=== PATIENT | female | born 1945 | race Caucasian/White ===

== ENCOUNTER 2018-04-30 12:04 | Inpatient (IN) ==
[2018-04-30 13:56] LABS: Apearance,Urine Slightly Hazy (Clear); Bilirubin,Urine Negative (Negative); Blood, Urine Negative (Negative); Glucose,Urine (UA) Negative (Negative); Ketones,Urine 5 mg/dL (Negative); Mucus,Urine Few /LPF (Occasional); Nitrite,Urine Negative (Negative); Protein,Urine Negative; RBC,Urine 2 /HPF (0-4); Squamous Epithelial Cell,Urine Occasional /HPF (0-10); Urine Color Yellow (Yellow); Urine Specific Gravity 1.017 (1.001-1.035); Urine Urobilinogen < 2.0 EU/DL (0.2-1.0); WBC,Urine <1 /HPF (0-6)
[2018-04-30] MEDS ORDERED: SODIUM CHLORIDE 0.9% 1,000 ML IV STA (14:40)
[2018-04-30] MEDS ORDERED: ONDANSETRON 4 MG/2 ML VIAL IV STA (14:40)
[2018-04-30] MEDS ORDERED: MORPHINE 4 MG/1 ML VIAL IV STA ×2 (14:40→15:06)
[2018-04-30] MEDS ORDERED: ONDANSETRON 4 MG/2 ML VIAL ONE (15:24)
[2018-04-30] MEDS ORDERED: MORPHINE 4 MG/1 ML VIAL ONE (15:24)
[2018-04-30 15:35] LABS: Basophils % 0.4 % (0.0-0.8); Eosinophils # 0.2 10*3/uL (0.0-0.87); Eosinophils % 1.8 % (0.00-10.9); Hemoglobin 14.3 GM/DL (12.0-16.0); Immature Granulocytes % 0.5 %; Immature Granulocytes Absolute 0.05 #; Lymphocytes # 1.6 10*3/uL (1.4-4.0); Lymphocytes % 15.3 % (21.3-54.2); Mean Corpuscular HGB Conc 31.8 GM/DL (32-36); Mean Corpuscular Hemoglobin 27 PG (27-34); Mean Corpuscular Volume 86.2 FL (87-102); Mean Platelet Volume 11.5 FL (9.6-12.0); Monocytes # 0.3 10*3/uL (0.11-0.8); Monocytes % 2.9 % (1.7-12.7); Neutrophils # 8.4 10*3/uL (1.4-7.4); Neutrophils % 79.1 % (38.7-73.9); Platelet Count 285 T/CUMM (130-400); Red Blood Count 5.22 MC/CUMM (3.8-5.5); Red Cell Distribution Width 16.8 % (9.3-17.3); White Blood Count 10.7 T/CUMM (4-12)
[2018-04-30 16:04] LABS: Albumin 4.2 G/DL (3.4-5.0); Bilirubin,Total 0.5 MG/DL (0.2-1.0); Calcium 9.9 MG/DL (8.5-10.1); Osmolality,Calculated 272.1 MOS/KG (273-304); Potassium 3.9 MMOL/L (3.5-5.1); Total Protein 7.6 G/DL (6.4-8.3)
[2018-04-30] MEDS ORDERED: ACETAMINOPHEN 325 MG TABLET PO PRN (18:03)
[2018-04-30] MEDS ORDERED: HYDROmorphone 2 MG/1 ML VIAL IV PRN (18:03)
[2018-04-30] MEDS ORDERED: ALBUTEROL/IPRATROPIUM 3 ML NEB RESP TX PRN (18:03)
[2018-04-30] MEDS ORDERED: LEVOFLOXACIN INJ 100 ML IV ONE (19:28)
[2018-04-30] MEDS: LEVOFLOXACIN INJ 500 MG in PREMIX 1 EACH IV SCH (19:34)
[2018-04-30] MEDS: MORPHINE 4 MG/1 ML VIAL IV PRN (20:50)
[2018-04-30] MEDS: ONDANSETRON 4 MG/2 ML VIAL IV PRN (21:01)
[2018-04-30] MEDS: DEXTROSE 5% NACL 0.9% 1,000 ML IV SCH (23:30)
[2018-04-30] MEDS: metroNIDAZOLE INJ 500 MG in PREMIX 1 EACH IV SCH (23:35)
[2018-05-01] MEDS: DEXTROSE 5% NACL 0.9% 1,000 ML IV SCH ×3 (03:30→12:35)
[2018-05-01] MEDS: ONDANSETRON 4 MG/2 ML VIAL IV PRN (03:34)
[2018-05-01] MEDS: MORPHINE 4 MG/1 ML VIAL IV PRN ×2 (03:34→08:33)
[2018-05-01 05:17] LABS: Basophils % 0.2 % (0.0-0.8); Eosinophils # 0.1 10*3/uL (0.0-0.87); Eosinophils % 0.9 % (0.00-10.9); Hematocrit 41.5 VOL% (35.7-47.0); Hemoglobin 12.8 GM/DL (12.0-16.0); Immature Granulocytes % 0.4 %; Immature Granulocytes Absolute 0.04 #; Lymphocytes # 1.5 10*3/uL (1.4-4.0); Mean Corpuscular HGB Conc 30.8 GM/DL (32-36); Mean Corpuscular Hemoglobin 27 PG (27-34); Mean Corpuscular Volume 88.7 FL (87-102); Mean Platelet Volume 11.8 FL (9.6-12.0); Monocytes # 0.7 10*3/uL (0.11-0.8); Monocytes % 6.8 % (1.7-12.7); Neutrophils # 8.1 10*3/uL (1.4-7.4); Neutrophils % 77.7 % (38.7-73.9); Platelet Count 270 T/CUMM (130-400); Red Blood Count 4.68 MC/CUMM (3.8-5.5); Red Cell Distribution Width 17.2 % (9.3-17.3); White Blood Count 10.4 T/CUMM (4-12)
[2018-05-01] MEDS: metroNIDAZOLE INJ 500 MG in PREMIX 1 EACH IV SCH ×3 (05:25→20:23)
[2018-05-01 05:48] LABS: Calcium 9.1 MG/DL (8.5-10.1); Potassium 3.2 MMOL/L (3.5-5.1)
[2018-05-01] MEDS ORDERED: ENOXAPARIN 40 MG/0.4 ML SYRINGE SUBCUT SCH (09:00)
[2018-05-01] MEDS: POTASSIUM CHLORIDE RIDER 10 MEQ in PREMIX 1 EACH IV SCH ×2 (12:35→14:40)
[2018-05-01] MEDS ORDERED: HEPARIN/NACL 0.9% 2 UNITS/ML 500 ML IV ONE (13:09)
[2018-05-01] MEDS ORDERED: PHENYLEPHRINE DRIP 20 MG/250 ML PREMIX IV ONE (13:09)
[2018-05-01 13:54] LABS: Apearance,Urine Slightly Hazy (Clear); Bilirubin,Urine Negative (Negative); Blood, Urine Negative (Negative); Glucose,Urine (UA) Negative (Negative); Ketones,Urine Negative (Negative); Nitrite,Urine Negative (Negative); Protein,Urine Negative; RBC,Urine 10 /HPF (0-4); Squamous Epithelial Cell,Urine Few /HPF (0-10); Urine Color Yellow (Yellow); Urine Specific Gravity > 1.060 (1.001-1.035); Urine Urobilinogen < 2.0 EU/DL (0.2-1.0); WBC,Urine 1 /HPF (0-6)
[2018-05-01] MEDS ORDERED: PHENYLEPHRINE DRIP 40 MG/250 ML PREMIX IV PRN ×3 (14:34→18:52)
[2018-05-01] MEDS ORDERED: ONDANSETRON 4 MG/2 ML VIAL IV PRN (14:39)
[2018-05-01] MEDS ORDERED: LACTATED RINGERS 1,000 ML IV ONE ×2 (14:39→19:44)
[2018-05-01] MEDS ORDERED: PROMETHAZINE 25 MG/1 ML VIAL IM PRN (14:39)
[2018-05-01] MEDS ORDERED: fentaNYL 100 MCG/2 ML VIAL ONE (14:52)
[2018-05-01] MEDS ORDERED: SUCCINYLCHOLINE 200 MG/10 ML VIAL ONE (14:52)
[2018-05-01] MEDS ORDERED: DESFLURANE 1 UNIT/15 MINUTE INH ONE (14:52)
[2018-05-01] MEDS ORDERED: ROCURONIUM 100 MG/10 ML VIAL IV ONE (14:52)
[2018-05-01] MEDS ORDERED: PHENYLEPHRINE 1 MG/10 ML SYRINGE IV ONE (14:52)
[2018-05-01] MEDS ORDERED: LACTATED RINGERS 2,000 ML IV ONE ×2 (14:52→15:58)
[2018-05-01] MEDS ORDERED: ETOMIDATE 40 MG/20 ML VIAL IV ONE (14:52)
[2018-05-01] MEDS ORDERED: MIDAZOLAM 2 MG/2 ML VIAL ONE (14:53)
[2018-05-01 14:59] LABS: ABG Base Excess -4.9 MMOL/L (-2.5-2.5); ABG HCO3 21.5 MMOL/L (20-26); ABG Oxygen Saturation 97.7 % (95-100); ABG PCO2 44.9 MM HG (35-48); ABG PH 7.299 (7.35-7.45); ABG PO2 119.7 MM HG (80-95); ABG TCO2 22.9 MMOL/L (23-27)
[2018-05-01] MEDS ORDERED: KETOROLAC 15 MG/1 ML VIAL IV SCH (15:00)
[2018-05-01 15:05] LABS: Basophils % 0.3 % (0.0-0.8); Eosinophils % 0.5 % (0.00-10.9); Hemoglobin 12.5 GM/DL (12.0-16.0); Immature Granulocytes % 1.1 %; Immature Granulocytes Absolute 0.07 #; Lymphocytes # 0.9 10*3/uL (1.4-4.0); Lymphocytes % 14.9 % (21.3-54.2); Mean Corpuscular HGB Conc 30.5 GM/DL (32-36); Mean Corpuscular Hemoglobin 27 PG (27-34); Mean Corpuscular Volume 88.7 FL (87-102); Mean Platelet Volume 11.2 FL (9.6-12.0); Monocytes # 0.3 10*3/uL (0.11-0.8); Monocytes % 4.4 % (1.7-12.7); Neutrophils # 4.8 10*3/uL (1.4-7.4); Neutrophils % 78.8 % (38.7-73.9); Platelet Count 295 T/CUMM (130-400); Red Blood Count 4.62 MC/CUMM (3.8-5.5); Red Cell Distribution Width 17.2 % (9.3-17.3)
[2018-05-01 15:06] LABS: White Blood Count 6.1 T/CUMM (4-12)
[2018-05-01] MEDS: PROPOFOL 1,000 MG/100 ML BOTTLE IV SCH (15:06)
[2018-05-01 15:16] LABS: Calcium 7.7 MG/DL (8.5-10.1); Osmolality,Calculated 285.3 MOS/KG (273-304)
[2018-05-01] MEDS: PANTOPRAZOLE 40 MG VIAL IV SCH (15:16)
[2018-05-01] MEDS: LACTATED RINGERS 1,000 ML IV SCH (15:53)
[2018-05-01] MEDS ORDERED: POTASSIUM CHLORIDE RIDER 10 MEQ in PREMIX 1 EACH IV PRN (15:59)
[2018-05-01] MEDS ORDERED: NOREPINEPHRINE 4 MG/4 ML VIAL IV ONE (16:01)
[2018-05-01] MEDS: NOREPINEPHRINE 8 MG in SODIUM CHLORIDE 0.9% 242 ML IV PRN ×3 (16:09→20:12)
[2018-05-01 16:22] LABS: Band Neutrophils 5 % (0-10); Lymphocytes 16 % (20-55); Platelet Estimate Adequate; Platelet Satellitism 1+; Segmented Neutrophils 64 % (50-85); Total Cells Counted 100
[2018-05-01] MEDS: POTASSIUM CHLORIDE RIDER 20 MEQ in PREMIX 1 EACH IV PRN (16:42)
[2018-05-01] MEDS: LEVOFLOXACIN INJ 500 MG in PREMIX 1 EACH IV SCH (16:59)
[2018-05-01] MEDS: HYDROCORTISONE 100 MG VIAL IV SCH (17:33)
[2018-05-01 18:07] LABS: ABG Base Excess -3.7 MMOL/L (-2.5-2.5); ABG HCO3 21.4 MMOL/L (20-26); ABG Oxygen Saturation 98.5 % (95-100); ABG PCO2 38.7 MM HG (35-48); ABG PO2 165.4 MM HG (80-95); ABG TCO2 22.6 MMOL/L (23-27)
[2018-05-01] MEDS ORDERED: ALBUMIN 5% 12.5 GM in PREMIX 1 EACH IV ONE ×2 (18:24→18:35)
[2018-05-01] MEDS ORDERED: PHENYLEPHRINE DRIP 40 MG/250 ML PREMIX IV ONE (18:50)
[2018-05-01 18:53] LABS: ABG Base Excess -3.9 MMOL/L (-2.5-2.5); ABG HCO3 21.2 MMOL/L (20-26); ABG Oxygen Saturation 97.9 % (95-100); ABG PCO2 38.2 MM HG (35-48); ABG PH 7.353 (7.35-7.45); ABG TCO2 18.9 MMOL/L (23-27)
[2018-05-01] MEDS: SERTRALINE 100 MG TABLET PO SCH (20:22)
[2018-05-01 21:43] LABS: Immature Granulocytes Absolute 0.12 #; Lymphocytes # 0.6 10*3/uL (1.4-4.0)
[2018-05-01 21:58] LABS: Calcium 6.9 MG/DL (8.5-10.1); Osmolality,Calculated 283.5 MOS/KG (273-304); Potassium 3.5 MMOL/L (3.5-5.1)
[2018-05-01 22:02] LABS: Basophils % 0.2 % (0.0-0.8); Hematocrit 36.1 VOL% (35.7-47.0); Hemoglobin 11.3 GM/DL (12.0-16.0); Immature Granulocytes % 0.8 %; Lymphocytes % 4.1 % (21.3-54.2); Mean Corpuscular HGB Conc 31.3 GM/DL (32-36); Mean Corpuscular Hemoglobin 28 PG (27-34); Mean Platelet Volume 11.6 FL (9.6-12.0); Monocytes # 0.5 10*3/uL (0.11-0.8); Monocytes % 3.7 % (1.7-12.7); Neutrophils # 13.2 10*3/uL (1.4-7.4); Neutrophils % 91.2 % (38.7-73.9); Platelet Count 304 T/CUMM (130-400); Red Cell Distribution Width 16.8 % (9.3-17.3)
[2018-05-01 22:03] LABS: White Blood Count 14.5 T/CUMM (4-12)
[2018-05-01 22:08] LABS: Band Neutrophils 5 % (0-10); Eosinophils 1 % (0-10); Lymphocytes 8 % (20-55); Platelet Estimate Adequate; Segmented Neutrophils 80 % (50-85); Total Cells Counted 100
[2018-05-01 22:09] LABS: Macrocytosis Slight
[2018-05-01] MEDS: HYDROmorphone 2 MG/1 ML VIAL IV PRN (23:28)
[2018-05-01] MEDS: NOREPINEPHRINE 16 MG in SODIUM CHLORIDE 0.9% 234 ML IV PRN (23:39)
[2018-05-02] MEDS: PROPOFOL 1,000 MG/100 ML BOTTLE IV SCH ×5 (01:02→22:16)
[2018-05-02] MEDS: HYDROCORTISONE 100 MG VIAL IV SCH ×3 (01:19→17:13)
[2018-05-02] MEDS: LACTATED RINGERS 1,000 ML IV SCH ×4 (02:16→22:17)
[2018-05-02] MEDS: metroNIDAZOLE INJ 500 MG in PREMIX 1 EACH IV SCH ×3 (03:30→21:27)
[2018-05-02] MEDS: HYDROmorphone 2 MG/1 ML VIAL IV PRN ×4 (03:30→20:30)
[2018-05-02 04:10] LABS: Basophils # 0.1 10*3/uL (0.0-0.2); Basophils % 0.4 % (0.0-0.8); Eosinophils % 0.1 % (0.00-10.9); Hematocrit 36.2 VOL% (35.7-47.0); Hemoglobin 11.3 GM/DL (12.0-16.0); Immature Granulocytes % 0.9 %; Immature Granulocytes Absolute 0.18 #; Lymphocytes # 0.7 10*3/uL (1.4-4.0); Lymphocytes % 3.3 % (21.3-54.2); Mean Corpuscular HGB Conc 31.2 GM/DL (32-36); Mean Corpuscular Hemoglobin 27 PG (27-34); Mean Corpuscular Volume 87.7 FL (87-102); Mean Platelet Volume 11.1 FL (9.6-12.0); Monocytes # 0.7 10*3/uL (0.11-0.8); Monocytes % 3.3 % (1.7-12.7); Neutrophils # 18.7 10*3/uL (1.4-7.4); Platelet Count 276 T/CUMM (130-400); Red Blood Count 4.13 MC/CUMM (3.8-5.5); Red Cell Distribution Width 16.9 % (9.3-17.3); White Blood Count 20.3 T/CUMM (4-12)
[2018-05-02 04:11] LABS: ABG Base Excess -4.3 MMOL/L (-2.5-2.5); ABG HCO3 20.9 MMOL/L (20-26); ABG Oxygen Saturation 98.9 % (95-100); ABG PCO2 38.3 MM HG (35-48); ABG PH 7.346 (7.35-7.45); ABG TCO2 18.8 MMOL/L (23-27)
[2018-05-02 04:43] LABS: Calcium 7.6 MG/DL (8.5-10.1); Osmolality,Calculated 288.1 MOS/KG (273-304); Potassium 3.7 MMOL/L (3.5-5.1)
[2018-05-02 05:52] LABS: Band Neutrophils 43 % (0-10); Hypochromasia Slight; Lymphocytes 5 % (20-55); Metamyelocytes 4 %; Platelet Estimate Normal; Segmented Neutrophils 44 % (50-85); Total Cells Counted 100
[2018-05-02] MEDS: LEVOTHYROXINE 137 MCG TABLET PO SCH ×2 (06:09→06:11)
[2018-05-02 07:27] LABS: Lactic Acid 2.1 MMOL/L (0.4-2.0)
[2018-05-02] MEDS ORDERED: HYDROCORTISONE 100 MG VIAL IV SCH (07:30)
[2018-05-02] MEDS: PANTOPRAZOLE 40 MG VIAL IV SCH (08:24)
[2018-05-02] MEDS ORDERED: ALBUMIN 5% 12.5 GM in PREMIX 1 EACH IV ONE (08:39)
[2018-05-02] MEDS: DILTIAZEM CD 240 MG CAPSULE PO SCH (08:42)
[2018-05-02] MEDS: ENOXAPARIN 40 MG/0.4 ML SYRINGE SUBCUT SCH (08:43)
[2018-05-02] MEDS: ASPIRIN CHEW 81 MG TABLET PO SCH (08:45)
[2018-05-02] MEDS ORDERED: predniSONE 20 MG TABLET PO SCH (09:00)
[2018-05-02] MEDS ORDERED: HEPARIN/NACL 0.9% 2 UNITS/ML 500 ML IV ONE (09:46)
[2018-05-02] MEDS: NOREPINEPHRINE 16 MG in SODIUM CHLORIDE 0.9% 234 ML IV PRN (10:35)
[2018-05-02] MEDS ORDERED: ALBUMIN 5% 25 GM in PREMIX 1 EACH IV ONE (12:29)
[2018-05-02] MEDS ORDERED: LACTATED RINGERS 1,000 ML IV ONE (12:50)
[2018-05-02] MEDS ORDERED: VECURONIUM 10 MG VIAL IV ONE (15:44)
[2018-05-02] MEDS ORDERED: SEVOFLURANE 1 UNIT/15 MINUTE INH ONE (15:44)
[2018-05-02 16:16] LABS: Basophils % 0.2 % (0.0-0.8); Eosinophils # 0.2 10*3/uL (0.0-0.87); Eosinophils % 0.9 % (0.00-10.9); Hematocrit 31.6 VOL% (35.7-47.0); Hemoglobin 9.9 GM/DL (12.0-16.0); Immature Granulocytes % 2.9 %; Immature Granulocytes Absolute 0.49 #; Lymphocytes # 0.6 10*3/uL (1.4-4.0); Lymphocytes % 3.4 % (21.3-54.2); Mean Corpuscular HGB Conc 31.3 GM/DL (32-36); Mean Corpuscular Hemoglobin 28 PG (27-34); Mean Platelet Volume 11.6 FL (9.6-12.0); Monocytes # 0.5 10*3/uL (0.11-0.8); Monocytes % 2.7 % (1.7-12.7); Neutrophils # 15.3 10*3/uL (1.4-7.4); Neutrophils % 89.9 % (38.7-73.9); Platelet Count 190 T/CUMM (130-400); Red Blood Count 3.59 MC/CUMM (3.8-5.5); Red Cell Distribution Width 16.8 % (9.3-17.3)
[2018-05-02 16:21] LABS: ABG Base Excess -1.8 MMOL/L (-2.5-2.5); ABG HCO3 23.6 MMOL/L (20-26); ABG Oxygen Saturation 95.4 % (95-100); ABG PCO2 42.7 MM HG (35-48); ABG PH 7.361 (7.35-7.45); ABG PO2 86.4 MM HG (80-95); ABG TCO2 24.9 MMOL/L (23-27)
[2018-05-02 16:37] LABS: Band Neutrophils 5 % (0-10); Blood Urea Nitrogen 17 MG/DL (7-18); Calcium 7.4 MG/DL (8.5-10.1); Glucose 149 MG/DL (74-106); Lymphocytes 7 % (20-55); Osmolality,Calculated 290.8 MOS/KG (273-304); Potassium 3.6 MMOL/L (3.5-5.1); Segmented Neutrophils 85 % (50-85); Sodium 144 MMOL/L (136-145); Total Cells Counted 100
[2018-05-02] MEDS: LEVOFLOXACIN INJ 500 MG in PREMIX 1 EACH IV SCH (16:38)
[2018-05-02 16:41] LABS: Hypochromasia Slight
[2018-05-02 16:42] LABS: Platelet Estimate Normal
[2018-05-02 16:47] LABS: Lactic Acid 2.1 MMOL/L (0.4-2.0)
[2018-05-02] MEDS ORDERED: MAGNESIUM SULF RIDER 4 GM in PREMIX 1 EACH IV PRN (16:49)
[2018-05-02] MEDS: POTASSIUM CHLORIDE RIDER 20 MEQ in PREMIX 1 EACH IV PRN (17:11)
[2018-05-02] MEDS: MAGNESIUM SULF RIDER 2 GM in PREMIX 1 EACH IV PRN ×2 (17:13→19:25)
[2018-05-02 17:40] LABS: ABG Base Excess -1.2 MMOL/L (-2.5-2.5); ABG HCO3 23.4 MMOL/L (20-26); ABG Oxygen Saturation 97.3 % (95-100); ABG PCO2 42.4 MM HG (35-48); ABG PH 7.364 (7.35-7.45); ABG PO2 96.6 MM HG (80-95); ABG TCO2 22.1 MMOL/L (23-27)
[2018-05-02] MEDS: SERTRALINE 100 MG TABLET PO SCH (21:28)
[2018-05-03] MEDS: HYDROCORTISONE 100 MG VIAL IV SCH ×4 (02:52→22:25)
[2018-05-03] MEDS: PROPOFOL 1,000 MG/100 ML BOTTLE IV SCH ×5 (02:58→22:28)
[2018-05-03] MEDS: metroNIDAZOLE INJ 500 MG in PREMIX 1 EACH IV SCH ×2 (04:27→13:42)
[2018-05-03 04:44] LABS: ABG Base Excess 1.4 MMOL/L (-2.5-2.5); ABG HCO3 25.5 MMOL/L (20-26); ABG Oxygen Saturation 95.1 % (95-100); ABG PCO2 38.3 MM HG (35-48); ABG PH 7.442 (7.35-7.45); ABG PO2 81.9 MM HG (80-95); ABG TCO2 26.7 MMOL/L (23-27)
[2018-05-03 04:47] LABS: Basophils % 0.2 % (0.0-0.8); Eosinophils # 0.4 10*3/uL (0.0-0.87); Eosinophils % 2.5 % (0.00-10.9); Hematocrit 28.6 VOL% (35.7-47.0); Hemoglobin 9.1 GM/DL (12.0-16.0); Immature Granulocytes % 2.3 %; Immature Granulocytes Absolute 0.38 #; Lymphocytes # 0.5 10*3/uL (1.4-4.0); Mean Corpuscular HGB Conc 31.8 GM/DL (32-36); Mean Corpuscular Hemoglobin 28 PG (27-34); Mean Platelet Volume 11.5 FL (9.6-12.0); Monocytes # 0.5 10*3/uL (0.11-0.8); Neutrophils # 14.5 10*3/uL (1.4-7.4); Platelet Count 180 T/CUMM (130-400); Red Blood Count 3.25 MC/CUMM (3.8-5.5); Red Cell Distribution Width 17.1 % (9.3-17.3); White Blood Count 16.3 T/CUMM (4-12)
[2018-05-03 05:06] LABS: Calcium 7.7 MG/DL (8.5-10.1); Osmolality,Calculated 289.8 MOS/KG (273-304); Potassium 3.5 MMOL/L (3.5-5.1)
[2018-05-03 05:10] LABS: Eosinophils 2 % (0-10); Lymphocytes 6 % (20-55); Platelet Estimate Adequate; Polychromasia Few; Segmented Neutrophils 89 % (50-85); Total Cells Counted 100
[2018-05-03] MEDS: POTASSIUM CHLORIDE RIDER 20 MEQ in PREMIX 1 EACH IV PRN (06:01)
[2018-05-03] MEDS ORDERED: fentaNYL 100 MCG/2 ML VIAL ONE (06:32)
[2018-05-03] MEDS: LACTATED RINGERS 1,000 ML IV SCH (06:33)
[2018-05-03] MEDS ORDERED: MIDAZOLAM 10 MG/2 ML VIAL ONE (06:33)
[2018-05-03] MEDS: LEVOTHYROXINE 137 MCG TABLET PO SCH (07:18)
[2018-05-03] MEDS: HYDROmorphone 2 MG/1 ML VIAL IV PRN ×2 (08:39→20:29)
[2018-05-03 09:01] LABS: ABG Base Excess -1.4 MMOL/L (-2.5-2.5); ABG HCO3 23.1 MMOL/L (20-26); ABG Oxygen Saturation 92.2 % (95-100); ABG PCO2 47.2 MM HG (35-48); ABG PH 7.328 (7.35-7.45); ABG PO2 70.3 MM HG (80-95); ABG TCO2 22.9 MMOL/L (23-27)
[2018-05-03] MEDS: DEXT 5% NACL 0.45% KCL 40 MEQ 40 MEQ/1,000 ML BAG IV SCH ×2 (09:08→18:31)
[2018-05-03] MEDS ORDERED: DEXTROSE 50% 25 GM/50 ML SYRINGE IV PRN (09:13)
[2018-05-03] MEDS ORDERED: GLUCAGON 1 MG VIAL IM PRN (09:13)
[2018-05-03] MEDS: ASPIRIN CHEW 81 MG TABLET PO SCH (09:59)
[2018-05-03] MEDS: PANTOPRAZOLE 40 MG VIAL IV SCH (10:01)
[2018-05-03] MEDS: ENOXAPARIN 40 MG/0.4 ML SYRINGE SUBCUT SCH (10:01)
[2018-05-03] MEDS: DILTIAZEM CD 240 MG CAPSULE PO SCH (10:06)
[2018-05-03] MEDS: INSULIN REGULAR 100 UNIT/ML SUBCUT SCH ×2 (12:22→18:39)
[2018-05-03] MEDS: ALBUTEROL/IPRATROPIUM 3 ML NEB RESP TX SCH ×2 (13:26→19:49)
[2018-05-03] MEDS: NOREPINEPHRINE 16 MG in SODIUM CHLORIDE 0.9% 234 ML IV PRN (16:24)
[2018-05-03] MEDS: LEVOFLOXACIN INJ 500 MG in PREMIX 1 EACH IV SCH (18:34)
[2018-05-03] MEDS: SERTRALINE 100 MG TABLET PO SCH (21:34)
[2018-05-04] MEDS: INSULIN REGULAR 100 UNIT/ML SUBCUT SCH ×4 (00:10→17:49)
[2018-05-04] MEDS ORDERED: ALBUMIN 5% 25 GM in PREMIX 1 EACH IV ONE (00:14)
[2018-05-04] MEDS: ALBUTEROL/IPRATROPIUM 3 ML NEB RESP TX SCH ×4 (01:22→19:45)
[2018-05-04] MEDS: DEXT 5% NACL 0.45% KCL 40 MEQ 40 MEQ/1,000 ML BAG IV SCH ×2 (01:37→09:48)
[2018-05-04] MEDS: PROPOFOL 1,000 MG/100 ML BOTTLE IV SCH ×5 (03:23→21:34)
[2018-05-04 03:40] LABS: ABG HCO3 23.6 MMOL/L (20-26); ABG Oxygen Saturation 97.7 % (95-100); ABG PCO2 37.5 MM HG (35-48); ABG PH 7.405 (7.35-7.45); ABG PO2 97.1 MM HG (80-95); Allen Test Positive; Pt O2 Delivery Device Ventilator
[2018-05-04 04:18] LABS: Basophils % 0.1 % (0.0-0.8); Eosinophils # 0.2 10*3/uL (0.0-0.87); Eosinophils % 1.9 % (0.00-10.9); Hematocrit 24.2 VOL% (35.7-47.0); Hemoglobin 7.4 GM/DL (12.0-16.0); Immature Granulocytes % 0.7 %; Immature Granulocytes Absolute 0.08 #; Lymphocytes # 0.5 10*3/uL (1.4-4.0); Lymphocytes % 4.5 % (21.3-54.2); Mean Corpuscular HGB Conc 30.6 GM/DL (32-36); Mean Corpuscular Hemoglobin 27 PG (27-34); Mean Platelet Volume 12.2 FL (9.6-12.0); Monocytes # 0.2 10*3/uL (0.11-0.8); Monocytes % 2.1 % (1.7-12.7); Neutrophils # 10.4 10*3/uL (1.4-7.4); Neutrophils % 90.7 % (38.7-73.9); Platelet Count 146 T/CUMM (130-400); Red Blood Count 2.72 MC/CUMM (3.8-5.5); Red Cell Distribution Width 17.6 % (9.3-17.3); White Blood Count 11.5 T/CUMM (4-12)
[2018-05-04 04:45] LABS: Lymphocytes 5 % (20-55); Segmented Neutrophils 95 % (50-85); Total Cells Counted 100
[2018-05-04 04:46] LABS: Platelet Estimate Adequate; Polychromasia Few
[2018-05-04 04:54] LABS: Calcium 7.1 MG/DL (8.5-10.1); Osmolality,Calculated 288.1 MOS/KG (273-304); Potassium 4.1 MMOL/L (3.5-5.1)
[2018-05-04] MEDS: HYDROCORTISONE 100 MG VIAL IV SCH ×3 (06:20→22:40)
[2018-05-04] MEDS: LEVOTHYROXINE 137 MCG TABLET PO SCH (06:23)
[2018-05-04] MEDS: HALOPERIDOL 5 MG/ML AMP IV SCH ×2 (08:59→21:30)
[2018-05-04] MEDS: ASPIRIN CHEW 81 MG TABLET PO SCH (10:32)
[2018-05-04] MEDS: DILTIAZEM CD 240 MG CAPSULE PO SCH (10:33)
[2018-05-04] MEDS: MULTIVITAMIN LIQUID (CENTRUM) 60 ML BOTTLE PER TUBE SCH (10:34)
[2018-05-04] MEDS: ENOXAPARIN 40 MG/0.4 ML SYRINGE SUBCUT SCH (10:34)
[2018-05-04] MEDS: PANTOPRAZOLE 40 MG VIAL IV SCH (10:34)
[2018-05-04 12:27] LABS: Hematocrit 24.5 VOL% (35.7-47.0); Hemoglobin 7.6 GM/DL (12.0-16.0)
[2018-05-04] MEDS ORDERED: SODIUM PHOSPHATE INJ 20 MMOL in SODIUM CHLORIDE 0.9% 250 ML IV ONE (14:00)
[2018-05-04] MEDS: LEVOFLOXACIN INJ 500 MG in PREMIX 1 EACH IV SCH (17:44)
[2018-05-04] MEDS: HYDROmorphone 2 MG/1 ML VIAL IV PRN (18:16)
[2018-05-04] MEDS: SERTRALINE 100 MG TABLET PO SCH (21:35)
[2018-05-05] MEDS: PROPOFOL 1,000 MG/100 ML BOTTLE IV SCH ×2 (00:02→04:05)
[2018-05-05] MEDS: METOCLOPRAMIDE 10 MG/2 ML VIAL IV SCH ×4 (00:05→18:30)
[2018-05-05] MEDS: INSULIN REGULAR 100 UNIT/ML SUBCUT SCH ×4 (00:31→17:51)
[2018-05-05] MEDS: ALBUTEROL/IPRATROPIUM 3 ML NEB RESP TX SCH ×4 (01:01→18:48)
[2018-05-05 03:54] LABS: ABG Base Excess -1.3 MMOL/L (-2.5-2.5); ABG HCO3 22.4 MMOL/L (20-26); ABG Oxygen Saturation 95.1 % (95-100); ABG PCO2 33.8 MM HG (35-48); ABG PH 7.439 (7.35-7.45); ABG PO2 78.9 MM HG (80-95); ABG TCO2 23.4 MMOL/L (23-27); Allen Test Positive; Pt O2 Delivery Device Ventilator
[2018-05-05 04:53] LABS: Basophils % 0.1 % (0.0-0.8); Eosinophils # 0.1 10*3/uL (0.0-0.87); Eosinophils % 0.6 % (0.00-10.9); Hematocrit 24.8 VOL% (35.7-47.0); Hemoglobin 7.7 GM/DL (12.0-16.0); Immature Granulocytes % 1.3 %; Immature Granulocytes Absolute 0.15 #; Lymphocytes # 0.5 10*3/uL (1.4-4.0); Lymphocytes % 4.7 % (21.3-54.2); Mean Corpuscular Hemoglobin 28 PG (27-34); Mean Corpuscular Volume 88.9 FL (87-102); Mean Platelet Volume 11.7 FL (9.6-12.0); Monocytes # 0.4 10*3/uL (0.11-0.8); Monocytes % 3.2 % (1.7-12.7); Neutrophils # 10.2 10*3/uL (1.4-7.4); Neutrophils % 90.1 % (38.7-73.9); Platelet Count 151 T/CUMM (130-400); Red Blood Count 2.79 MC/CUMM (3.8-5.5); Red Cell Distribution Width 17.8 % (9.3-17.3); White Blood Count 11.3 T/CUMM (4-12)
[2018-05-05 05:09] LABS: Calcium 7.9 MG/DL (8.5-10.1); Osmolality,Calculated 293.8 MOS/KG (273-304)
[2018-05-05 05:14] LABS: Lymphocytes 8 % (20-55); Segmented Neutrophils 88 % (50-85); Total Cells Counted 100
[2018-05-05 05:15] LABS: Platelet Estimate Normal
[2018-05-05 05:16] LABS: Hypochromasia Slight
[2018-05-05 05:20] LABS: Microcytosis 1+; Polychromasia Few
[2018-05-05] MEDS: LEVOTHYROXINE 137 MCG TABLET PO SCH (06:40)
[2018-05-05] MEDS: HYDROCORTISONE 100 MG VIAL IV SCH ×3 (06:43→23:11)
[2018-05-05] MEDS: HYDROmorphone 2 MG/1 ML VIAL IV PRN ×2 (06:48→23:09)
[2018-05-05] MEDS: DEXMEDETOMIDINE 200 MCG in SODIUM CHLORIDE 0.9% 48 ML IV PRN ×3 (07:21→23:16)
[2018-05-05] MEDS: DILTIAZEM CD 240 MG CAPSULE PO SCH (10:31)
[2018-05-05] MEDS: ENOXAPARIN 40 MG/0.4 ML SYRINGE SUBCUT SCH (10:31)
[2018-05-05] MEDS: MULTIVITAMIN LIQUID (CENTRUM) 60 ML BOTTLE PER TUBE SCH (10:31)
[2018-05-05] MEDS: HALOPERIDOL 5 MG/ML AMP IV SCH ×2 (10:32→21:29)
[2018-05-05] MEDS: ASPIRIN CHEW 81 MG TABLET PO SCH (10:32)
[2018-05-05] MEDS: PANTOPRAZOLE 40 MG VIAL IV SCH (10:34)
[2018-05-05] MEDS: DEXT 5% NACL 0.45% KCL 40 MEQ 40 MEQ/1,000 ML BAG IV SCH ×2 (12:06→22:28)
[2018-05-05] MEDS: LEVOFLOXACIN INJ 500 MG in PREMIX 1 EACH IV SCH (17:51)
[2018-05-05] MEDS: SERTRALINE 100 MG TABLET PO SCH (21:29)
[2018-05-06] MEDS: METOCLOPRAMIDE 10 MG/2 ML VIAL IV SCH ×4 (00:23→17:02)
[2018-05-06] MEDS: INSULIN REGULAR 100 UNIT/ML SUBCUT SCH ×4 (00:26→17:48)
[2018-05-06] MEDS: ALBUTEROL/IPRATROPIUM 3 ML NEB RESP TX SCH ×4 (00:31→19:02)
[2018-05-06] MEDS: HYDROmorphone 2 MG/1 ML VIAL IV PRN ×4 (01:02→20:45)
[2018-05-06 02:52] LABS: ABG Base Excess -0.4 MMOL/L (-2.5-2.5); ABG Oxygen Saturation 89.9 % (95-100); ABG PCO2 43.3 MM HG (35-48); ABG PH 7.369 (7.35-7.45); ABG PO2 62.9 MM HG (80-95); ABG TCO2 23.2 MMOL/L (23-27); Allen Test Positive; Pt O2 Delivery Device Venturi Mask
[2018-05-06] MEDS ORDERED: ALBUTEROL 2.5 MG/3 ML NEB RESP TX PRN (03:11)
[2018-05-06 04:31] LABS: Basophils % 0.3 % (0.0-0.8); Eosinophils # 0.3 10*3/uL (0.0-0.87); Eosinophils % 3.1 % (0.00-10.9); Hematocrit 27.5 VOL% (35.7-47.0); Hemoglobin 8.3 GM/DL (12.0-16.0); Immature Granulocytes Absolute 0.48 #; Lymphocytes # 0.6 10*3/uL (1.4-4.0); Lymphocytes % 7.9 % (21.3-54.2); Mean Corpuscular HGB Conc 30.2 GM/DL (32-36); Mean Corpuscular Hemoglobin 27 PG (27-34); Mean Corpuscular Volume 89.6 FL (87-102); Monocytes # 0.6 10*3/uL (0.11-0.8); Neutrophils % 75.7 % (38.7-73.9); Platelet Count 164 T/CUMM (130-400); Red Blood Count 3.07 MC/CUMM (3.8-5.5); Red Cell Distribution Width 17.8 % (9.3-17.3)
[2018-05-06 04:53] LABS: Calcium 7.6 MG/DL (8.5-10.1); Osmolality,Calculated 295.7 MOS/KG (273-304); Potassium 4.4 MMOL/L (3.5-5.1); Prealbumin 17.3 MG/DL (20-40)
[2018-05-06 05:14] LABS: Eosinophils 7 % (0-10); Hypochromasia Slight; Lymphocytes 11 % (20-55); Platelet Estimate Adequate; Segmented Neutrophils 79 % (50-85); Total Cells Counted 100
[2018-05-06] MEDS: LEVOTHYROXINE 137 MCG TABLET PO SCH (06:40)
[2018-05-06] MEDS: HYDROCORTISONE 100 MG VIAL IV SCH ×3 (06:40→21:51)
[2018-05-06] MEDS: DEXT 5% NACL 0.45% KCL 40 MEQ 40 MEQ/1,000 ML BAG IV SCH ×3 (07:17→20:07)
[2018-05-06] MEDS: MULTIVITAMIN LIQUID (CENTRUM) 60 ML BOTTLE PER TUBE SCH (08:13)
[2018-05-06] MEDS: ENOXAPARIN 40 MG/0.4 ML SYRINGE SUBCUT SCH (08:15)
[2018-05-06] MEDS: PANTOPRAZOLE 40 MG VIAL IV SCH (08:15)
[2018-05-06] MEDS: ASPIRIN CHEW 81 MG TABLET PO SCH (08:16)
[2018-05-06] MEDS: DILTIAZEM CD 240 MG CAPSULE PO SCH (09:13)
[2018-05-06] MEDS ORDERED: LABETALOL 20 MG/4 ML SYRINGE IV PRN (09:15)
[2018-05-06] MEDS: DILTIAZEM 60 MG TABLET PO SCH ×3 (13:09→20:44)
[2018-05-06] MEDS ORDERED: GLUCAGON 1 MG VIAL IM PRN (16:29)
[2018-05-06] MEDS ORDERED: DEXTROSE 10% 1,000 ML IV PRN (16:29)
[2018-05-06] MEDS ORDERED: DEXTROSE 50% 25 GM/50 ML VIAL IV PRN (16:29)
[2018-05-06] MEDS: FAT EMULSION 20% 250 ML IV SCH (16:58)
[2018-05-06] MEDS: LEVOFLOXACIN INJ 500 MG in PREMIX 1 EACH IV SCH (16:58)
[2018-05-06] MEDS ORDERED: TRACE ELEMENTS (5) 1 ML, MULTIVITAMIN INJ 10 ML in AMINO ACIDS/DEXT/LYTES 5-15% 2,000 ML IV SCH (18:00)
[2018-05-06] MEDS: SERTRALINE 100 MG TABLET PO SCH (20:51)
[2018-05-07] MEDS: INSULIN REGULAR 100 UNIT/ML SUBCUT SCH ×4 (00:15→17:18)
[2018-05-07] MEDS: METOCLOPRAMIDE 10 MG/2 ML VIAL IV SCH ×4 (00:42→17:50)
[2018-05-07] MEDS: ALBUTEROL/IPRATROPIUM 3 ML NEB RESP TX SCH ×4 (02:04→19:13)
[2018-05-07 04:07] LABS: Basophils % 0.4 % (0.0-0.8); Eosinophils # 0.7 10*3/uL (0.0-0.87); Hematocrit 29.5 VOL% (35.7-47.0); Hemoglobin 9.1 GM/DL (12.0-16.0); Immature Granulocytes % 10.9 %; Immature Granulocytes Absolute 1.19 #; Lymphocytes % 8.9 % (21.3-54.2); Mean Corpuscular HGB Conc 30.8 GM/DL (32-36); Mean Corpuscular Hemoglobin 28 PG (27-34); Mean Corpuscular Volume 89.4 FL (87-102); Monocytes # 0.9 10*3/uL (0.11-0.8); Monocytes % 8.2 % (1.7-12.7); Neutrophils # 7.2 10*3/uL (1.4-7.4); Neutrophils % 65.6 % (38.7-73.9); Platelet Count 203 T/CUMM (130-400); Red Cell Distribution Width 17.2 % (9.3-17.3); White Blood Count 10.9 T/CUMM (4-12)
[2018-05-07 04:37] LABS: Alanine Aminotransferase 12 U/L (13-56); Alkaline Phosphatase 90 U/L (45-117); Aspartate Amino Transferase 11 U/L (0-37); Bilirubin,Total < 0.39 MG/DL (0.2-1.0); Blood Urea Nitrogen 25 MG/DL (7-18); Calcium 7.2 MG/DL (8.5-10.1); Glucose 161 MG/DL (74-106); Osmolality,Calculated 283.5 MOS/KG (273-304); Potassium 4.3 MMOL/L (3.5-5.1); Sodium 139 MMOL/L (136-145); Total Protein 4.8 G/DL (6.4-8.3); Triglycerides 203 MG/DL (2-150)
[2018-05-07] MEDS: DEXT 5% NACL 0.45% KCL 40 MEQ 40 MEQ/1,000 ML BAG IV SCH ×2 (06:20→16:19)
[2018-05-07] MEDS: HYDROCORTISONE 100 MG VIAL IV SCH ×3 (06:45→23:25)
[2018-05-07] MEDS: LEVOTHYROXINE 137 MCG TABLET PO SCH (06:46)
[2018-05-07] MEDS: MAGNESIUM SULF RIDER 2 GM in PREMIX 1 EACH IV PRN (06:46)
[2018-05-07 07:25] LABS: Band Neutrophils 14 % (0-10); Eosinophils 3 % (0-10); Lymphocytes 15 % (20-55); Segmented Neutrophils 57 % (50-85); Total Cells Counted 100
[2018-05-07 07:26] LABS: Anisocytosis 1+; Platelet Estimate Normal
[2018-05-07] MEDS: ENOXAPARIN 40 MG/0.4 ML SYRINGE SUBCUT SCH (09:19)
[2018-05-07] MEDS: DILTIAZEM 60 MG TABLET PO SCH ×4 (09:20→21:06)
[2018-05-07] MEDS: ASPIRIN CHEW 81 MG TABLET PO SCH (09:20)
[2018-05-07] MEDS: PANTOPRAZOLE 40 MG VIAL IV SCH (09:20)
[2018-05-07] MEDS: MULTIVITAMIN LIQUID (CENTRUM) 60 ML BOTTLE PER TUBE SCH (12:22)
[2018-05-07] MEDS ORDERED: diphenhydrAMINE CAP 25 MG CAPSULE PO PRN (12:51)
[2018-05-07] MEDS: FAT EMULSION 20% 250 ML IV SCH (16:20)
[2018-05-07] MEDS: LEVOFLOXACIN INJ 500 MG in PREMIX 1 EACH IV SCH (16:37)
[2018-05-07] MEDS ORDERED: TRACE ELEMENTS (5) 1 ML, MULTIVITAMIN INJ 10 ML in AMINO ACIDS/DEXT/LYTES 5-15% 2,000 ML IV SCH (17:00)
[2018-05-07] MEDS: SERTRALINE 100 MG TABLET PO SCH (21:06)
[2018-05-08] MEDS: ALBUTEROL/IPRATROPIUM 3 ML NEB RESP TX SCH ×2 (00:41→07:27)
[2018-05-08] MEDS: METOCLOPRAMIDE 10 MG/2 ML VIAL IV SCH ×3 (01:30→12:17)
[2018-05-08] MEDS: DEXT 5% NACL 0.45% KCL 40 MEQ 40 MEQ/1,000 ML BAG IV SCH ×2 (03:30→11:06)
[2018-05-08] MEDS: INSULIN REGULAR 100 UNIT/ML SUBCUT SCH ×3 (03:42→12:17)
[2018-05-08 04:27] LABS: Basophils % 0.4 % (0.0-0.8); Eosinophils # 0.5 10*3/uL (0.0-0.87); Eosinophils % 4.6 % (0.00-10.9); Hematocrit 29.4 VOL% (35.7-47.0); Hemoglobin 8.9 GM/DL (12.0-16.0); Immature Granulocytes Absolute 1.55 #; Lymphocytes # 1.2 10*3/uL (1.4-4.0); Lymphocytes % 10.9 % (21.3-54.2); Mean Corpuscular HGB Conc 30.3 GM/DL (32-36); Mean Corpuscular Hemoglobin 26 PG (27-34); Mean Corpuscular Volume 87.2 FL (87-102); Mean Platelet Volume 10.7 FL (9.6-12.0); Monocytes # 0.9 10*3/uL (0.11-0.8); Monocytes % 8.2 % (1.7-12.7); Neutrophils # 6.9 10*3/uL (1.4-7.4); Neutrophils % 61.9 % (38.7-73.9); Platelet Count 248 T/CUMM (130-400); Red Blood Count 3.37 MC/CUMM (3.8-5.5); White Blood Count 11.1 T/CUMM (4-12)
[2018-05-08 04:41] LABS: Calcium 7.5 MG/DL (8.5-10.1); Osmolality,Calculated 287.3 MOS/KG (273-304); Potassium 3.7 MMOL/L (3.5-5.1)
[2018-05-08 05:03] LABS: Band Neutrophils 4 % (0-10); Eosinophils 4 % (0-10); Hypochromasia 2+; Lymphocytes 14 % (20-55); Platelet Estimate Normal; Segmented Neutrophils 66 % (50-85); Total Cells Counted 100
[2018-05-08] MEDS: HYDROCORTISONE 100 MG VIAL IV SCH (06:55)
[2018-05-08] MEDS: LEVOTHYROXINE 137 MCG TABLET PO SCH (06:55)
[2018-05-08] MEDS: PANTOPRAZOLE 40 MG VIAL IV SCH (08:08)
[2018-05-08] MEDS: ASPIRIN CHEW 81 MG TABLET PO SCH (08:08)
[2018-05-08] MEDS: DILTIAZEM 60 MG TABLET PO SCH ×2 (08:08→13:02)
[2018-05-08] MEDS: ENOXAPARIN 40 MG/0.4 ML SYRINGE SUBCUT SCH (08:08)
[2018-05-08] MEDS: MULTIVITAMIN LIQUID (CENTRUM) 60 ML BOTTLE PER TUBE SCH (08:09)
[2018-05-08 12:21] VITALS: BP 159/71
[2018-05-08] MEDS ORDERED: POTASSIUM PHOSPHATE 30 MMOL in SODIUM CHLORIDE 0.9% 250 ML IV ONE (13:00)
== END 2018-05-08 13:22 | DRG 329 ==
LOC: N.ED 12:04 → N.EDINP 18:03 → N.5E 20:36 → N.ICU 05-01 14:02 → N.CC 05-06 13:55
PROVIDERS: ADMIT Surgery; ATTEND Surgery